=== PATIENT | female | born 1985 | race Caucasian/White ===

== ENCOUNTER 2019-09-26 14:06 | Inpatient (IN) ==
[2019-09-26] MEDS ORDERED: Pantoprazole 40 MG VIAL IVP ONE (14:23)
[2019-09-26] MEDS ORDERED: 0.9 % Sodium Chloride 1,000 ML IVC ONE (14:23)
[2019-09-26] MEDS ORDERED: Ondansetron 4 MG/2 ML VIAL IVP ONE ×2 (14:23→15:24)
[2019-09-26] MEDS ORDERED: Ketorolac 30 MG/ML VIAL IVP ONE (14:23)
[2019-09-26 14:37] LABS: Bilirubin,Urine Large (Negative); Blood,Urine Negative (Negative); Color,Urine Orange (Yellow); Glucose,Urine (UA) Normal (Normal); Ketones,Urine Negative (Negative); Leukocyte Esterase,Urine Trace (Negative); Nitrite,Urine Negative (Negative); PH,Urine 5.5 pH Units (5.0-8.0); Protein,Urine 30 mg/dL (Neg-Trace); Specific Gravity,Urine 1.016 (1.010-1.025); Urobilinogen,Urine Normal (Normal)
[2019-09-26 14:40] LABS: Hyaline Casts,Urine Few per lpf (None-Few); Squamous Epithelial Cell,Urine Many per lpf (None-Few)
[2019-09-26 14:42] LABS: Clarity,Urine Slightly Hazy (Clear)
[2019-09-26 14:43] LABS: Amphetamine Screen,Urine Negative ng/mL (Cutoff=1000); Barbiturate Screen,Urine Negative ng/mL (Cutoff=200); Benzodiazepines Screen,Urine Negative ng/mL (Cutoff=200); Cannabinoid Screen,Urine Negative ng/mL (Cutoff = 50); Cocaine Screen,Urine Negative ng/mL (Cutoff= 300); Opiate Screen,Urine Negative ng/mL (Cutoff=300); Phencyclidine Screen,Urine Negative ng/mL (Cutoff=25)
[2019-09-26 14:53] LABS: Bacteria,Urine Moderate per hpf (None-Few); RBC,Urine 0-3 per hpf (0-3); WBC,Urine 0-3 per hpf (0-3)
[2019-09-26 14:58] LABS: Basophils % 0.3 %; Eosinophils % 0.2 %; Hematocrit 46.5 % (35.3-44.9); Hemoglobin 14.6 g/dL (11.5-15.4); Lymphocytes # 1.4 K/mcL (0.6-4.6); Lymphocytes % 9.1 %; Mean Corpuscular HGB Conc 31.4 g/dL (31.6-35.5); Mean Corpuscular Hemoglobin 29.9 pg (28.0-33.3); Mean Corpuscular Volume 95.1 fL (83.0-100.0); Mean Platelet Volume 10.2 fL (9.4-12.4); Monocytes # 0.8 K/mcL (0.0-1.3); Neutrophils # 12.9 K/mcL (1.6-8.9); Platelet Count 398 K/mcL (140-400); Red Blood Count 4.89 M/mcL (3.82-4.97); Red Cell Distribution Width 13.5 % (11.5-14.5); Segmented Neutrophils % 84.4 %; White Blood Count 15.3 K/mcL (4.3-11.1)
[2019-09-26] MEDS ORDERED: *HR* FentaNYL (PF) 100 MCG/2 ML VIAL IVP ONE ×2 (15:24→20:42)
[2019-09-26 15:37] LABS: Alanine Aminotransferase 409 Units/L (7-52); Albumin 4.4 g/dL (3.5-5.7); Alkaline Phosphatase 238 Units/L (34-104); Amylase > 2000 Units/L (29-103); Aspartate Amino Transferase 302 Units/L (13-39); BUN/Creatinine Ratio 14 (6-26); Bilirubin,Direct 4.9 mg/dL (0.0-0.2); Bilirubin,Indirect 2.4 mg/dL (0.0-1.0); Bilirubin,Total 7.3 mg/dL (0.3-1.0); Blood Urea Nitrogen 12 mg/dL (6-20); Carbon Dioxide 20 mEq/L (23-29); Chloride 102 mEq/L (98-107); Globulin 4.3 g/dL (2.4-3.5); Glucose 194 mg/dL (70-105); Lipase > 1800 Units/L (11-82); Osmolality,Calculated 287 (280-300); Potassium 3.3 mEq/L (3.5-5.1); Sodium 136 mEq/L (136-145); Total Protein 8.7 g/dL (6.4-8.9); eGFR For African Americans > 60 (> 60); eGFR For Non-African Americans > 60 (> 60)
[2019-09-26] MEDS ORDERED: Naloxone 0.4 MG/ML INJ IVP PRN (17:01)
[2019-09-26] MEDS ORDERED: Ondansetron 4 MG/2 ML VIAL IVP PRN (17:01)
[2019-09-26] MEDS ORDERED: Potassium Chloride 20 MEQ, Lidocaine 1% 2 ML in 0.9 % Sodium Chloride 250 ML IVPB ONE (17:05)
[2019-09-26] MEDS ORDERED: Ringers Solution, Lactated 1,000 ML IVC SCH (17:15)
[2019-09-26] MEDS: *HR* Heparin 5,000 UNIT/ML VIAL SQ SCH (18:00)
[2019-09-26] MEDS: Ringers Solution, Lactated 1,000 ML IVC SCH (20:17)
[2019-09-26] MEDS ORDERED: *HR* Promethazine 25 MG/ML VIAL IVP PRN (20:36)
[2019-09-26] MEDS: Piperacillin/Tazobactam 3.375 GM in 0.9 % Sodium Chloride Mini Bag 100 ML IVPB SCH (23:41)
[2019-09-27] MEDS: Ondansetron 4 MG/2 ML VIAL IVP PRN ×2 (00:40→07:38)
[2019-09-27 00:50] LABS: Basophils % 0.1 %; Hematocrit 44.2 % (35.3-44.9); Hemoglobin 13.9 g/dL (11.5-15.4); Immature Granulocytes % 0.4 % (0-4); Lymphocytes # 0.5 K/mcL (0.6-4.6); Lymphocytes % 3.6 %; Mean Corpuscular HGB Conc 31.4 g/dL (31.6-35.5); Mean Corpuscular Hemoglobin 30.1 pg (28.0-33.3); Mean Corpuscular Volume 95.7 fL (83.0-100.0); Mean Platelet Volume 10.6 fL (9.4-12.4); Monocytes # 0.7 K/mcL (0.0-1.3); Monocytes % 5.1 %; Platelet Count 288 K/mcL (140-400); Red Blood Count 4.62 M/mcL (3.82-4.97); Red Cell Distribution Width 13.8 % (11.5-14.5); Segmented Neutrophils % 90.8 %; White Blood Count 13.3 K/mcL (4.3-11.1)
[2019-09-27 01:13] LABS: Alanine Aminotransferase 338 Units/L (7-52); Albumin 3.7 g/dL (3.5-5.7); Albumin/Globulin Ratio 1.1 (1.1-2.2); Alkaline Phosphatase 201 Units/L (34-104); Aspartate Amino Transferase 273 Units/L (13-39); BUN/Creatinine Ratio 17 (6-26); Blood Urea Nitrogen 12 mg/dL (6-20); Calcium 9.2 mg/dL (8.6-10.3); Carbon Dioxide 20 mEq/L (23-29); Chloride 106 mEq/L (98-107); Globulin 3.5 g/dL (2.4-3.5); Glucose 151 mg/dL (70-105); Magnesium 1.5 mg/dL (1.6-2.6); Osmolality,Calculated 287 (280-300); Sodium 137 mEq/L (136-145); Total Protein 7.2 g/dL (6.4-8.9); eGFR For African Americans > 60 (> 60); eGFR For Non-African Americans > 60 (> 60)
[2019-09-27] MEDS: Ringers Solution, Lactated 1,000 ML IVC SCH ×2 (02:39→09:30)
[2019-09-27] MEDS: *HR* Promethazine 25 MG/ML VIAL IVP PRN ×2 (05:44→12:04)
[2019-09-27] MEDS: *HR* FentaNYL (PF) 100 MCG/2 ML VIAL IVP PRN ×2 (05:48→12:04)
[2019-09-27] MEDS: *HR* Heparin 5,000 UNIT/ML VIAL SQ SCH ×2 (05:51→17:29)
[2019-09-27] MEDS: Piperacillin/Tazobactam 3.375 GM in 0.9 % Sodium Chloride Mini Bag 100 ML IVPB SCH ×3 (07:39→23:37)
[2019-09-27] MEDS ORDERED: *HR* FentaNYL (PF) 100 MCG/2 ML VIAL ONE (12:33)
[2019-09-27] MEDS ORDERED: *HR* Propofol 200 MG/20 ML VIAL IVP ONE (12:33)
[2019-09-27] MEDS ORDERED: Lidocaine -MPF 2% 2 ML VIAL ONE (12:34)
[2019-09-27] MEDS ORDERED: Ondansetron 4 MG/2 ML VIAL ONE (12:34)
[2019-09-27] MEDS ORDERED: Dexamethasone 4 MG/ML VIAL ONE (12:34)
[2019-09-27] MEDS ORDERED: *HR* Rocuronium Bromide 50 MG/5 ML VIAL ONE (13:21)
[2019-09-27] MEDS ORDERED: Ondansetron 4 MG/2 ML VIAL IVP ONE (13:57)
[2019-09-27] MEDS ORDERED: *HR* OxyCODONE Immed Rel 5 MG TABLET PO PRN (13:57)
[2019-09-27] MEDS ORDERED: *HR* Promethazine 25 MG/ML VIAL IVP PRN (13:57)
[2019-09-27] MEDS ORDERED: *HR* HYDROmorphone PF 0.5 MG/0.5 ML SYRINGE IVP PRN (13:57)
[2019-09-27] MEDS ORDERED: *HR* Meperidine 25 MG/ML SYRINGE IVP PRN (13:57)
[2019-09-27] MEDS ORDERED: Indomethacin 50 MG SUPP.RECT RC ONE (14:12)
[2019-09-28] MEDS: Ringers Solution, Lactated 1,000 ML IVC SCH ×4 (02:09→15:19)
[2019-09-28 02:23] LABS: Basophils % 0.1 %; Hematocrit 39.4 % (35.3-44.9); Hemoglobin 12.7 g/dL (11.5-15.4); Immature Granulocytes % 0.7 % (0-4); Lymphocytes # 1.3 K/mcL (0.6-4.6); Lymphocytes % 5.3 %; Mean Corpuscular HGB Conc 32.2 g/dL (31.6-35.5); Mean Corpuscular Hemoglobin 30.5 pg (28.0-33.3); Mean Corpuscular Volume 94.7 fL (83.0-100.0); Mean Platelet Volume 10.4 fL (9.4-12.4); Monocytes # 1.5 K/mcL (0.0-1.3); Monocytes % 6.3 %; Platelet Count 297 K/mcL (140-400); Red Blood Count 4.16 M/mcL (3.82-4.97); Red Cell Distribution Width 13.8 % (11.5-14.5); Segmented Neutrophils % 87.6 %
[2019-09-28 02:24] LABS: Neutrophils # 20.9 K/mcL (1.6-8.9); White Blood Count 23.8 K/mcL (4.3-11.1)
[2019-09-28 02:28] LABS: INR 1.3; Prothrombin Time 14.9 Seconds (9.4-12.1)
[2019-09-28 02:49] LABS: Alanine Aminotransferase 197 Units/L (7-52); Alkaline Phosphatase 173 Units/L (34-104); Aspartate Amino Transferase 98 Units/L (13-39); BUN/Creatinine Ratio 20 (6-26); Bilirubin,Total 3.3 mg/dL (0.3-1.0); Blood Urea Nitrogen 11 mg/dL (6-20); Calcium 8.1 mg/dL (8.6-10.3); Carbon Dioxide 24 mEq/L (23-29); Chloride 104 mEq/L (98-107); Glucose 134 mg/dL (70-105); Osmolality,Calculated 281 (280-300); Sodium 135 mEq/L (136-145); eGFR For African Americans > 60 (> 60); eGFR For Non-African Americans > 60 (> 60)
[2019-09-28] MEDS: *HR* Heparin 5,000 UNIT/ML VIAL SQ SCH ×2 (05:57→17:17)
[2019-09-28] MEDS: Piperacillin/Tazobactam 3.375 GM in 0.9 % Sodium Chloride Mini Bag 100 ML IVPB SCH ×3 (07:15→23:54)
[2019-09-28] MEDS ORDERED: SODIUM CHLORIDE/NAHCO3/KCL/PEG 4,000 ML SOLN.RECON PO ONE (17:00)
[2019-09-28] MEDS: Ondansetron 4 MG/2 ML VIAL IVP PRN (23:57)
[2019-09-29] MEDS: Ringers Solution, Lactated 1,000 ML IVC SCH ×2 (00:03→22:22)
[2019-09-29] MEDS ORDERED: *HR* HYDROmorphone (PF) 1 MG/ML SYRINGE IVP ONE ×2 (04:24→23:23)
[2019-09-29] MEDS: *HR* Heparin 5,000 UNIT/ML VIAL SQ SCH ×2 (04:47→17:22)
[2019-09-29 05:04] LABS: Basophils # 0.1 K/mcL (0.0-0.2); Basophils % 0.2 %; Hematocrit 39.7 % (35.3-44.9); Hemoglobin 12.6 g/dL (11.5-15.4); Immature Granulocytes % 0.7 % (0-4); Lymphocytes # 1.6 K/mcL (0.6-4.6); Lymphocytes % 6.4 %; Mean Corpuscular HGB Conc 31.7 g/dL (31.6-35.5); Mean Corpuscular Hemoglobin 30.5 pg (28.0-33.3); Mean Corpuscular Volume 96.1 fL (83.0-100.0); Mean Platelet Volume 10.8 fL (9.4-12.4); Monocytes % 8.2 %; Platelet Count 306 K/mcL (140-400); Red Blood Count 4.13 M/mcL (3.82-4.97); Red Cell Distribution Width 14.3 % (11.5-14.5); Segmented Neutrophils % 84.5 %; White Blood Count 24.8 K/mcL (4.3-11.1)
[2019-09-29 05:27] LABS: Alanine Aminotransferase 117 Units/L (7-52); Albumin 3.1 g/dL (3.5-5.7); Alkaline Phosphatase 141 Units/L (34-104); Aspartate Amino Transferase 42 Units/L (13-39); BUN/Creatinine Ratio 18 (6-26); Bilirubin,Total 2.4 mg/dL (0.3-1.0); Blood Urea Nitrogen 9 mg/dL (6-20); Calcium 8.1 mg/dL (8.6-10.3); Carbon Dioxide 23 mEq/L (23-29); Chloride 99 mEq/L (98-107); Globulin 3.2 g/dL (2.4-3.5); Glucose 91 mg/dL (70-105); Osmolality,Calculated 276 (280-300); Potassium 3.6 mEq/L (3.5-5.1); Sodium 134 mEq/L (136-145); Total Protein 6.3 g/dL (6.4-8.9); eGFR For African Americans > 60 (> 60); eGFR For Non-African Americans > 60 (> 60)
[2019-09-29] MEDS: Piperacillin/Tazobactam 3.375 GM in 0.9 % Sodium Chloride Mini Bag 100 ML IVPB SCH ×3 (07:35→23:47)
[2019-09-29] MEDS ORDERED: Isovue-370 500 ML BOTTLE IVP ONE (08:09)
[2019-09-29] MEDS: carvediloL 6.25 MG TABLET PO SCH ×2 (08:13→15:22)
[2019-09-29] MEDS ORDERED: Isovue-370 500 ML BOTTLE PO ONE ×2 (11:30→11:32)
[2019-09-29] MEDS ORDERED: Ringers Solution, Lactated 1,000 ML IVC SCH (12:00)
[2019-09-29] MEDS ORDERED: Ringers Solution, Lactated 500 ML IVC SCH (12:15)
[2019-09-29 13:01] LABS: Chol/HDL Ratio 12.1 (0-4.9); Cholesterol 217 mg/dL (< 200); HDL Cholesterol 18 mg/dL (40-59); LDL Cholesterol,Calculated 176 mg/dL (0-99); Triglycerides 116 mg/dL (< 150)
[2019-09-29] MEDS: Pantoprazole 40 MG VIAL IVP SCH (13:31)
[2019-09-29] MEDS ORDERED: Ringers Solution, Lactated 1,000 ML ONE (14:07)
[2019-09-30] MEDS: *HR* Heparin 5,000 UNIT/ML VIAL SQ SCH (04:25)
[2019-09-30 04:33] LABS: Basophils % 0.2 %; Eosinophils % 0.1 %; Hemoglobin 12.2 g/dL (11.5-15.4); Immature Granulocytes % 0.5 % (0-4); Lymphocytes # 1.2 K/mcL (0.6-4.6); Lymphocytes % 5.8 %; Mean Corpuscular HGB Conc 31.3 g/dL (31.6-35.5); Mean Corpuscular Hemoglobin 29.7 pg (28.0-33.3); Mean Corpuscular Volume 94.9 fL (83.0-100.0); Mean Platelet Volume 10.6 fL (9.4-12.4); Monocytes # 1.7 K/mcL (0.0-1.3); Neutrophils # 17.9 K/mcL (1.6-8.9); Platelet Count 335 K/mcL (140-400); Red Blood Count 4.11 M/mcL (3.82-4.97); Segmented Neutrophils % 85.4 %
[2019-09-30 04:52] LABS: Albumin 2.9 g/dL (3.5-5.7); Bilirubin,Direct 0.9 mg/dL (0.0-0.2); Bilirubin,Indirect 1.1 mg/dL (0.0-1.0); Globulin 2.9 g/dL (2.4-3.5); Total Protein 5.8 g/dL (6.4-8.9)
[2019-09-30 04:54] LABS: Alanine Aminotransferase 76 Units/L (7-52); Albumin 2.8 g/dL (3.5-5.7); Albumin/Globulin Ratio 0.9 (1.1-2.2); Alkaline Phosphatase 107 Units/L (34-104); Aspartate Amino Transferase 28 Units/L (13-39); BUN/Creatinine Ratio 19 (6-26); Blood Urea Nitrogen 8 mg/dL (6-20); Calcium 8.3 mg/dL (8.6-10.3); Carbon Dioxide 27 mEq/L (23-29); Chloride 98 mEq/L (98-107); Globulin 3.2 g/dL (2.4-3.5); Glucose 106 mg/dL (70-105); Magnesium 1.7 mg/dL (1.6-2.6); Osmolality,Calculated 277 (280-300); Phosphorous 1.8 mg/dL (2.7-4.5); Potassium 3.2 mEq/L (3.5-5.1); Sodium 134 mEq/L (136-145); eGFR For African Americans > 60 (> 60); eGFR For Non-African Americans > 60 (> 60)
[2019-09-30 06:37] VITALS: BP 144/69
[2019-09-30] MEDS ORDERED: Meropenem 500 MG in Water for inj. (sterile) 10 ML IVP SCH (08:00)
[2019-09-30] MEDS ORDERED: *HR* Dextrose 50 % in Water (Syg) 50 ML SYRINGE IVP PRN (08:03)
[2019-09-30] MEDS ORDERED: Dextrose Gel 15 GM/37.5 ML TUBE PO PRN ×2 (08:03)
[2019-09-30] MEDS ORDERED: D5% in Water 1,000 ML IVC PRN (08:03)
[2019-09-30] MEDS ORDERED: Potassium Chloride 40 MEQ, Lidocaine 1% 2 ML in D5% in Water 500 ML IVPB ONE (08:10)
[2019-09-30] MEDS ORDERED: Ringers Solution, Lactated 500 ML IVC SCH (08:15)
[2019-09-30] MEDS: Pantoprazole 40 MG VIAL IVP SCH (08:37)
[2019-09-30] MEDS: carvediloL 6.25 MG TABLET PO SCH (08:37)
[2019-09-30] MEDS ORDERED: Insulin LISPRO 300 UNITS/3 ML VIAL SQ SCH (12:00)
== END 2019-09-30 11:35 | disposition short-term general hospital (02) ==
LOC: 3ANU 14:06 → EMEROOARM 14:06 → SUATTDRO 17:01 → 3ANU 17:13
PROVIDERS: ADMIT Family Medicine; ATTEND Internal Medicine